=== PATIENT | male | born 1965 | race Caucasian/White ===

== ENCOUNTER 2019-03-20 16:44 | Emergency (ER) | payer OTHER ==
[2019-03-20] MEDS ORDERED: Propofol* 10 MG/ML 20 ML BTL IV PUSH ONE (20:46)
[2019-03-20] MEDS ORDERED: Propofol* 500 MG/50 ML BTL ONE (21:08)
--- NOTE | 2019-03-20 22:05 | ED ---
Course/Dx - Diagnoses Provider Diagnoses: Closed anterior dislocation of right shoulder Discharge - Sign-Out/Discharge Documenting (check all that apply): Patient Departure Patient Received Moderate/Deep Sedation with Procedure: Yes - Discharge Plan Condition: Stable Disposition: HOME Patient Education Materials: Shoulder Dislocation (ED) Referrals: Jose Angel Washington MD [Medical Doctor] - No Primary Care Phys,NOPCP [Primary Care Provider] - Additional Instructions: Wear sling for 2 weeks. Ibuprofen for pain. Follow-up with orthopedics back in [place]. Return to the ED for any new or worsening symptoms. - Billing Disposition and Condition Condition: STABLE Disposition: Home - Attestation Statements Document Initiated by Scribe: No Procedure Note: Sedation - Sedation/Analgesia Informed Consent Obtained: Yes Equipment in Room: Bag and Mask, Pulse Oximeter, Suction, Cellulose Insulation Helper Plan for Sedation: Moderate Sedation ASA Classification: I Previous Problem with Sedation: No - Pre-Procedure Exam Airway Exam:: Neck Extenstion: Full - Post Procedure Eval Alert and Oriented: yes Normal Respiratroy Status: yes Complications: Mild hypoxemia, corrected with O2 by NC and verbal stimulation Total Sedation/Analgesia Time: 30 Minutes Procedure Note / Orthopedic - Dislocation Treatment Bone(s) / Specify: right shoulder anterior dislocaiton Anesthesia: Procedural Sedation Procedure / Technique: Linda technique Post Dislocation Treatment: N/V Intact, Allignment Assessed, Relocation Acceptable, Sedation Adequate - Splinting/Strapping/Stabilization Post Spliniting/Strapping /Stabilization: N/V Intact - sling applied
[2019-03-20] MEDS ORDERED: Ketorolac INJ* 30 MG/ML 1 ML VIAL IV PUSH ONE (22:12)
[2019-03-20] MEDS ORDERED: NS 0.9% 1000 ML** 1,000 ML IV ONE (22:15)
--- NOTE | 2019-03-20 22:17 | ED ---
Upper Extremity Pain - HPI Summary HPI Summary: Patient complains of right shoulder pain and deformity status post mechanical fall today onto concrete. Denies any other pain injury or symptoms. Denies prior history of dislocation. - History of Current Complaint Chief Complaint: EDShoulderClavicEugene Stated Complaint: RT SHOULDER INJURY PER PT Time Seen by Provider: 03/20/19 20:29 Hx Obtained From: Patient Mechanism Of Injury: Fall From A Standing Position Onset/Duration: Started Hours Ago Timing: Constant Severity Initially: Severe Severity Currently: Severe Pain Location: Shoulder Character: Aching, Throbbing Aggravating Factor(s): Movement Alleviating Factor(s): Rest Associated Signs & Symptoms: Positive: Negative - Allergies/Home Medications Allergies/Adverse Reactions: Allergies Allergy/AdvReac Type Severity Reaction Status Date / Time No Known Allergies Allergy Verified 03/20/19 17:11 Home Medications: Home Medications Propranolol HCl 10 mg PO DAILY WITH MEAL 03/20/19 [History Confirmed 03/20/19] Simvastatin 20 mg PO DAILY WITH MEAL 03/20/19 [History Confirmed 03/20/19] PMH/Surg Hx/FS Hx/Imm Hx Endocrine/Hematology History: Denies: Hx Anticoagulant Therapy Cardiovascular History: Denies: Hx Pacemaker/ICD History: Denies: Hx Dialysis Sensory History: Denies: Hx Legally Blind Opthamlomology History: Denies: Hx Eye Prosthesis EENT History: Denies: Hx Deafness Neurological History: Denies: Hx Dementia Psychiatric History: Denies: Hx Autism Infectious Disease History: No Infectious Disease History: Denies: Traveled Outside the [place] in Last 30 Days - Family History Known Family History: Positive: Non-Contributory - Social History Alcohol Use: Occasionally Substance Use Type: Reports: None Smoking Status (MU): Current Some Day Smoker Review of Systems Constitutional: Negative Eyes: Negative ENT: Negative Cardiovascular: Negative Respiratory: Negative Gastrointestinal: Negative Genitourinary: Negative Musculoskeletal: Other Skin: Negative Neurological: Negative Psychological: Normal All Other Systems Reviewed And Are Negative: Yes Physical Exam - Summary Physical Exam Summary: Obvious deformity to right shoulder. PMS intact distally no pain with flexion and extension of elbow, wrist, fingers of right upper extremity. Triage Information Reviewed: Yes Vital Signs On Initial Exam: Initial Vitals Temp Pulse Resp BP Pulse Ox 98.4 F 78 16 149/87 98 03/20/19 17:06 03/20/19 17:06 03/20/19 17:06 03/20/19 17:06 03/20/19 17:06 Vital Signs Reviewed: Yes Appearance: Positive: Well-Appearing Skin: Positive: Warm Head/Face: Positive: Normal Head/Face Inspection Eyes: Positive: Normal Neck: Positive: Supple Respiratory/Lung Sounds: Positive: Clear to Auscultation Cardiovascular: Positive: Normal Abdomen Description: Positive: Nontender Musculoskeletal: Positive: Normal Neurological: Positive: Normal Psychiatric: Positive: Normal AVPU Assessment: Alert - Rachel Coma Scale Best Eye Response: 4 - Spontaneous Best Motor Response: 6 - Obeys Commands Best Verbal Response: 5 - Oriented Coma Scale Total: 15 Diagnostics - Vital Signs Vital Signs Temp Pulse Resp BP Pulse Ox 03/20/19 21:41 78 151/85 95 03/20/19 21:36 79 147/91 95 03/20/19 21:16 75 164/107 93 03/20/19 21:00 75 95 03/20/19 20:45 74 155/82 95 03/20/19 20:44 75 97 03/20/19 19:03 98.6 F 74 16 128/74 100 03/20/19 17:06 98.4 F 78 16 149/87 98 - Laboratory Lab Statement: Any lab studies that have been ordered have been reviewed, and results considered in the medical decision making process. Course/Dx - Course Course Of Treatment: Patient complains of right shoulder pain and deformity status post mechanical fall today onto concrete. Denies any other pain injury or symptoms. Denies prior history of dislocation. Physical exam:Obvious deformity to right shoulder. PMS intact distally no pain with flexion and extension of elbow, wrist, fingers of right upper extremity. Vital signs within normal limits. X-ray right shoulder positive for dislocation. Right shoulder reduced by Dr. Carvalho and myself using conscious sedation. Right shoulder reduction successful confirmed by x-ray. Patient placed in sling. Advised to follow-up with orthopedics in [place] where he lives. Patient understands and approves of plan. - Diagnoses Provider Diagnoses: Closed anterior dislocation of right shoulder Discharge - Sign-Out/Discharge Documenting (check all that apply): Patient Departure Patient Received Moderate/Deep Sedation with Procedure: No - Discharge Plan Condition: Stable Disposition: HOME Patient Education Materials: Shoulder Dislocation (ED) Referrals: No Primary Care Phys,NOPCP [Primary Care Provider] - Jose Angel Washington MD [Medical Doctor] - Additional Instructions: Wear sling for 2 weeks. Ibuprofen for pain. Follow-up with orthopedics back in [place]. Return to the ED for any new or worsening symptoms. - Billing Disposition and Condition Condition: STABLE Disposition: Home
[2019-03-20 23:04] VITALS: BP 145/86
== END 2019-03-20 23:03 | disposition home or self-care (01) ==
LOC: ED 16:44
DX: S43.004A Unspecified dislocation of right shoulder joint, initial encounter (principal); W01.0XXA Fall on same level from slipping, tripping and stumbling without subsequent striking against object, initial encounter; F17.210 Nicotine dependence, cigarettes, uncomplicated
CPT/HCPCS: 23650; 23655; 96361; 96374; 96375; 99285; J1885; J2704